=== PATIENT | female | born 1970 | race Caucasian/White ===

== ENCOUNTER 2018-12-24 12:47 | Inpatient (IN) | payer OTHER ==
[2018-12-24] MEDS: SODIUM CHLORIDE 0.9% 1L BAG IV* (15:51)
[2018-12-24] MEDS: PIPER-TAZO 3.375 GM IV (PMX) 100 ML IVPB ×2 (15:51→21:06)
[2018-12-24 15:52] LABS: ADD MAN DIFF? NO
[2018-12-24 15:57] LABS: ABNORMAL IP MESSAGE 1; HEMATOCRIT 37.8 % (37.0-47.0); HEMOGLOBIN 12.5 g/dl (12.0-16.0); MEAN CORPUSCULAR HEMOGLOBIN 29.1 pg (29.0-33.0); MEAN CORPUSCULAR HGB CONC 33.1 g/dl (32.0-37.0); MEAN CORPUSCULAR VOLUME 88.1 fl (82.0-101.0); MEAN PLATELET VOLUME 8.5 fl (7.4-10.4); PLATELET COUNT 715 10^3/UL (140-415); RED BLOOD COUNT 4.29 10^6/ul (4.20-5.40); RED CELL DISTRIBUTION WIDTH 14.3 % (11.5-14.5)
[2018-12-24 15:57] LABS: WHITE BLOOD COUNT 26.6 10^3/ul (4.8-10.8)
[2018-12-24 15:58] LABS: POSITIVE DIFF @See below
[2018-12-24] MEDS: CLINDAMYCIN 900 MG/D5W (PMX) 50 ML IVPB (16:14)
[2018-12-24 16:16] LABS: INR 0.97
[2018-12-24 16:19] LABS: ALANINE AMINOTRANSFERASE 44 IU/L (13-69); ALBUMIN 3.5 g/dl (3.3-4.9); ALBUMIN/GLOBULIN RATIO 0.72; ALKALINE PHOSPHATASE 139 IU/L (42-121); ANION GAP 8 (5-13); ASPARTATE AMINO TRANSFERASE 44 IU/L (15-46); BILIRUBIN,INDIRECT 0.1 mg/dl (0-1.1); BILIRUBIN,TOTAL 0.1 mg/dl (0.2-1.3); BLOOD UREA NITROGEN 10 mg/dl (7-20); CALCIUM 8.5 mg/dl (8.4-10.2); CARBON DIOXIDE 31 mmol/L (21-31); CHLORIDE 92 mmol/L (97-110); CREATININE 0.56 mg/dl (0.44-1.00); Estimated GFR > 60 mL/min (>60); GLUCOSE 91 mg/dl (70-220); PARTIAL THROMBOPLASTIN TIME 29.2 Sec (23.0-35.0); POTASSIUM 3.1 mmol/L (3.5-5.1); SODIUM 131 mmol/L (135-144); TOTAL PROTEIN 8.3 g/dl (6.1-8.1)
[2018-12-24 16:22] LABS: ADD UMIC YES; UR ASCORBIC ACID NEGATIVE (NEGATIVE); UR BILIRUBIN (Dip) NEGATIVE (NEGATIVE); UR BLOOD (Dip) NEGATIVE (NEGATIVE); UR CLARITY SLIGHTLY CLOUDY (CLEAR); UR COLOR AMBER (YELLOW); UR GLUCOSE (Dip) NEGATIVE (NEGATIVE); UR KETONES (Dip) NEGATIVE (NEGATIVE); UR LEUKOCYTE ESTERASE (Dip) TRACE Leu/ul (NEGATIVE); UR MUCUS FEW /HPF (NONE SEEN); UR NITRITE (Dip) NEGATIVE (NEGATIVE); UR RBC 2 /HPF (0-5); UR SPECIFIC GRAVITY (Dip) 1.021 (1.003-1.030); UR SQUAMOUS EPITHELIAL CELL FEW /HPF (FEW); UR TOTAL PROTEIN (Dip) NEGATIVE (NEGATIVE); UR UROBILINOGEN (Dip) 2+ mg/dL (NEGATIVE); UR WBC 8 /HPF (0-5)
[2018-12-24 16:31] LABS: TROPONIN-I < 0.012 ng/ml (0.000-0.120)
[2018-12-24 16:46] LABS: BAND NEUTROPHILS #M 2.6 10^3/ul (0.0-0.6); BAND NEUTROPHILS % (M) 10 % (0-4); BASOPHIL #M 0.2 10^3/ul (0.0-0.0); BASOPHILS % (M) 1 % (0-2); LYMPHOCYTES #M 4.7 10^3/ul (0.8-2.9); LYMPHOCYTES % (M) 18 % (15-51); MONOCYTE #M 2.1 10^3/ul (0.3-0.9); MONOCYTES % (M) 8 % (0-11); PLATELET MORPHOLOGY COMMENT @See below; POLYCHROMASIA 1+ (0-0); SEG NEUT #M 17.4 10^3/ul (1.6-7.5); SEGMENTED NEUTROPHILS (M) % 63 % (39-77); SMUDGE%M 30 % (0-0)
[2018-12-24 16:51] LABS: PATH REVIEW? YES
[2018-12-24] MEDS: VANCOMYCIN 1 GM (PMX) 250 ML IVPB (17:07)
[2018-12-24] MEDS ORDERED: LORAZEPAM 0.5 MG TAB PO (17:30)
[2018-12-24] MEDS ORDERED: ACETAMINOPHEN 325 MG TAB PO (17:30)
[2018-12-24] MEDS ORDERED: NACL 0.9% 3 ML SYG IV (17:30)
[2018-12-24] MEDS ORDERED: ONDANSETRON 4 MG INJ IV ×2 (17:30)
[2018-12-24 17:40] LABS: HAAIG REFLEX REFLEX FILED
[2018-12-24 17:45] LABS: BARBITURATES Negative (NEGATIVE); BENZODIAZEPINES Negative (NEGATIVE); CANNABINOIDS Positive (NEGATIVE); COCAINE Negative (NEGATIVE)
[2018-12-24 17:47] LABS: AMPHETAMINE/METHAMPHETAMINE POSITIVE (NEGATIVE); OPIATES Positive (NEGATIVE)
[2018-12-24] MEDS: OXYCODONE/ACETAMINOPHEN (5/325) TAB PO (17:49)
[2018-12-24] MEDS: POTASSIUM CHLORIDE (SR) 20 MEQ TAB PO ×2 (17:49→21:01)
[2018-12-24 18:22] LABS: HEPATITIS B SURFACE ANTIGEN NEGATIVE (NEGATIVE)
[2018-12-24 18:39] LABS: HEPATITIS B CORE ANTIBODY REACTIVE (NEGATIVE)
[2018-12-24 18:43] LABS: HEPATITIS C VIRAL ANTIBODY REACTIVE (NEGATIVE)
[2018-12-24] MEDS: VANCOMYCIN IV PER PHARMACY XX (19:29)
[2018-12-24 23:13] LABS: LACTIC ACID 2.5 mmol/L (0.5-2.0)
[2018-12-24] MEDS: SOD CHLORIDE 0.9% 1,000 ML IV (23:28)
[2018-12-25] MEDS: OXYCODONE/ACETAMINOPHEN (5/325) TAB PO ×2 (00:03→06:29)
[2018-12-25] MEDS: PIPER-TAZO 3.375 GM IV (PMX) 100 ML IVPB ×4 (04:15→17:38)
[2018-12-25] MEDS: VANCOMYCIN 1 GM 250 ML IVPB ×2 (05:41→18:15)
[2018-12-25] MEDS: SOD CHLORIDE 0.9% 1,000 ML IV ×2 (07:27→22:33)
[2018-12-25 07:29] LABS: WHITE BLOOD COUNT 23.5 10^3/ul (4.8-10.8)
[2018-12-25 07:29] LABS: HEMATOCRIT 35.8 % (37.0-47.0); HEMOGLOBIN 11.8 g/dl (12.0-16.0); MEAN CORPUSCULAR HEMOGLOBIN 28.9 pg (29.0-33.0); MEAN CORPUSCULAR VOLUME 87.5 fl (82.0-101.0); MEAN PLATELET VOLUME 9.1 fl (7.4-10.4); PLATELET COUNT 583 10^3/UL (140-415); RED BLOOD COUNT 4.09 10^6/ul (4.20-5.40); RED CELL DISTRIBUTION WIDTH 14.6 % (11.5-14.5)
[2018-12-25 07:42] LABS: HEMOGLOBIN A1C 5.6 % (0-5.9)
[2018-12-25 07:44] LABS: ADD MAN DIFF? YES; POSITIVE DIFF @See below
[2018-12-25 08:11] LABS: LACTIC ACID 2.7 mmol/L (0.5-2.0)
[2018-12-25 08:16] LABS: ALANINE AMINOTRANSFERASE 41 IU/L (13-69); ALBUMIN 2.5 g/dl (3.3-4.9); ALBUMIN/GLOBULIN RATIO 0.64; ALKALINE PHOSPHATASE 140 IU/L (42-121); ANION GAP 9 (5-13); ASPARTATE AMINO TRANSFERASE 41 IU/L (15-46); BLOOD UREA NITROGEN 8 mg/dl (7-20); CALCIUM 7.6 mg/dl (8.4-10.2); CARBON DIOXIDE 24 mmol/L (21-31); CHLORIDE 101 mmol/L (97-110); CREATININE 0.63 mg/dl (0.44-1.00); Estimated GFR > 60 mL/min (>60); GLUCOSE 116 mg/dl (70-220); MAGNESIUM 1.7 mg/dl (1.7-2.5); POTASSIUM 3.9 mmol/L (3.5-5.1); SODIUM 134 mmol/L (135-144); TOTAL PROTEIN 6.4 g/dl (6.1-8.1)
[2018-12-25 08:46] LABS: ANISOCYTOSIS 1+ (0-0); BAND NEUTROPHILS #M 1.6 10^3/ul (0.0-0.6); BAND NEUTROPHILS % (M) 7 % (0-4); LYMPHOCYTES #M 2.8 10^3/ul (0.8-2.9); LYMPHOCYTES % (M) 12 % (15-51); METAMYELOCYTES #M 0.2 10^3/ul (0.0-0.0); METAMYELOCYTES %M 1 % (0-0); MONOCYTE #M 0.7 10^3/ul (0.3-0.9); MONOCYTES % (M) 3 % (0-11); PLATELET ESTIMATE INCREASED; POIKILOCYTOSIS 1+ (0-0); POLYCHROMASIA 1+ (0-0); SEG NEUT #M 18.5 10^3/ul (1.6-7.5); SEGMENTED NEUTROPHILS (M) % 77 % (39-77); SMUDGE%M 8 % (0-0)
[2018-12-25] MEDS: METHADONE (1 MG/ML 5 ML PO UD SYG) PO (12:47)
[2018-12-25] MEDS: HYDROmorphONE 0.5 MG/0.5 ML SYG IV ×3 (13:46→22:33)
[2018-12-25 18:34] LABS: HIV 1&2 ANTIBODY NEGATIVE (NEGATIVE)
[2018-12-25] MEDS: ACETAMINOPHEN 325 MG TAB PO (20:57)
[2018-12-26] MEDS: PIPER-TAZO 3.375 GM IV (PMX) 100 ML IVPB ×4 (00:01→18:25)
[2018-12-26] MEDS: HYDROmorphONE 0.5 MG/0.5 ML SYG IV ×5 (04:24→22:40)
[2018-12-26 05:21] LABS: ADD MAN DIFF? NO
[2018-12-26 05:27] LABS: BASOPHIL # 0.1 10^3/ul (0.0-0.1); BASOPHILS % 0.5 % (0.0-2.0); EOSINOPHILS % 0.1 % (0.0-7.0); HEMATOCRIT 30.4 % (37.0-47.0); HEMOGLOBIN 10.1 g/dl (12.0-16.0); LYMPHOCYTES # 2.3 10^3/ul (0.8-2.9); LYMPHOCYTES % 10.1 % (15.0-51.0); MEAN CORPUSCULAR HEMOGLOBIN 29.2 pg (29.0-33.0); MEAN CORPUSCULAR HGB CONC 33.2 g/dl (32.0-37.0); MEAN CORPUSCULAR VOLUME 87.9 fl (82.0-101.0); MEAN PLATELET VOLUME 8.9 fl (7.4-10.4); MONOCYTE # 1.2 10^3/ul (0.3-0.9); MONOCYTES % 5.4 % (0.0-11.0); NEUTROPHIL # 18.2 10^3/ul (1.6-7.5); NEUTROPHILS % 80.1 % (39.0-77.0); PLATELET COUNT 498 10^3/UL (140-415); RED BLOOD COUNT 3.46 10^6/ul (4.20-5.40); RED CELL DISTRIBUTION WIDTH 14.6 % (11.5-14.5)
[2018-12-26 05:27] LABS: WHITE BLOOD COUNT 22.7 10^3/ul (4.8-10.8)
[2018-12-26 05:49] LABS: ANION GAP 5 (5-13); BLOOD UREA NITROGEN 7 mg/dl (7-20); CALCIUM 7.3 mg/dl (8.4-10.2); CARBON DIOXIDE 24 mmol/L (21-31); CHLORIDE 101 mmol/L (97-110); CREATININE 0.41 mg/dl (0.44-1.00); Estimated GFR > 60 mL/min (>60); GLUCOSE 107 mg/dl (70-220); MAGNESIUM 1.6 mg/dl (1.7-2.5); POTASSIUM 4.1 mmol/L (3.5-5.1); SODIUM 130 mmol/L (135-144)
[2018-12-26 06:03] LABS: VANCOMYCIN,TROUGH < 5.0 ug/ml (10.0-20.0)
[2018-12-26] MEDS: VANCOMYCIN 1 GM 250 ML IVPB ×3 (06:22→22:09)
[2018-12-26] MEDS ORDERED: VANCOMYCIN 1 GM 250 ML IVPB (06:30)
[2018-12-26] MEDS: METHADONE (1 MG/ML 5 ML PO UD SYG) PO (08:37)
[2018-12-26] MEDS: MAGNESIUM SULFATE 3 GM in DEXTROSE 5% 100 ML IVPB (11:31)
[2018-12-26] MEDS: SOD CHLORIDE 0.9% 1,000 ML IV (12:03)
[2018-12-27] MEDS: PIPER-TAZO 3.375 GM IV (PMX) 100 ML IVPB ×5 (00:22→23:46)
[2018-12-27] MEDS: ACETAMINOPHEN 325 MG TAB PO ×2 (01:52→19:36)
[2018-12-27] MEDS: SOD CHLORIDE 0.9% 1,000 ML IV ×3 (02:03→16:00)
[2018-12-27] MEDS: HYDROmorphONE 0.5 MG/0.5 ML SYG IV ×4 (02:47→22:14)
[2018-12-27 06:28] LABS: WHITE BLOOD COUNT 21.8 10^3/ul (4.8-10.8)
[2018-12-27 06:28] LABS: HEMATOCRIT 30.7 % (37.0-47.0); HEMOGLOBIN 10.2 g/dl (12.0-16.0); MEAN CORPUSCULAR HEMOGLOBIN 28.9 pg (29.0-33.0); MEAN CORPUSCULAR HGB CONC 33.2 g/dl (32.0-37.0); MEAN PLATELET VOLUME 9.4 fl (7.4-10.4); PLATELET COUNT 443 10^3/UL (140-415); RED BLOOD COUNT 3.53 10^6/ul (4.20-5.40); RED CELL DISTRIBUTION WIDTH 14.5 % (11.5-14.5)
[2018-12-27 06:40] LABS: POSITIVE DIFF @See below
[2018-12-27 06:41] LABS: ADD MAN DIFF? YES
[2018-12-27 06:50] LABS: ANION GAP 7 (5-13); BLOOD UREA NITROGEN 9 mg/dl (7-20); CALCIUM 7.6 mg/dl (8.4-10.2); CARBON DIOXIDE 25 mmol/L (21-31); CHLORIDE 100 mmol/L (97-110); Estimated GFR > 60 mL/min (>60); GLUCOSE 78 mg/dl (70-220); POTASSIUM 3.9 mmol/L (3.5-5.1); SODIUM 132 mmol/L (135-144)
[2018-12-27 06:53] LABS: VANCOMYCIN,TROUGH 7.3 ug/ml (10.0-20.0)
[2018-12-27] MEDS ORDERED: CEFAZOLIN 1 GM INJ (07:00)
[2018-12-27] MEDS ORDERED: LIDOCAINE 2% (SDV) 5 ML INJ (07:00)
[2018-12-27] MEDS ORDERED: SEVOFLURANE 15 MIN (07:00)
[2018-12-27] MEDS ORDERED: NORepinephrine 4 MG INJ (07:00)
[2018-12-27] MEDS ORDERED: CA CHLORIDE 10% 10 ML SYRINGE (07:00)
[2018-12-27] MEDS ORDERED: NA BICARBONATE 8.4% 50 ML SYG (07:00)
[2018-12-27] MEDS: VANCOMYCIN 1 GM 250 ML IVPB (07:03)
[2018-12-27] MEDS: METHADONE (1 MG/ML 5 ML PO UD SYG) PO (09:00)
[2018-12-27] MEDS ORDERED: FENTAnyl 50 MCG/ML VIAL (09:28)
[2018-12-27] MEDS ORDERED: MIDAZOLAM 1 MG/ML 2 ML INJ (09:29)
[2018-12-27] MEDS ORDERED: PROPOFOL 20 ML (09:29)
[2018-12-27] MEDS ORDERED: FENTAnyl 50 MCG/ML VIAL IV ×2 (09:30)
[2018-12-27] MEDS ORDERED: HYDROmorphONE 1 MG/5 ML IV SYRINGE IV ×2 (09:30)
[2018-12-27] MEDS ORDERED: DIPHENHYDRAMINE 50 MG INJ IV (09:30)
[2018-12-27] MEDS ORDERED: ONDANSETRON 4 MG INJ IV (09:30)
[2018-12-27] MEDS ORDERED: LEVALBUTEROL (NEB) 1.25 MG/0.5 ML AMP HHN (09:30)
[2018-12-27] MEDS ORDERED: MEPERIDINE 25 MG INJ IV (09:30)
[2018-12-27] MEDS ORDERED: METOCLOPRAMIDE 10 MG INJ (09:31)
[2018-12-27 10:09] LABS: ANISOCYTOSIS 1+ (0-0); BAND NEUTROPHILS #M 3.7 10^3/ul (0.0-0.6); BAND NEUTROPHILS % (M) 17 % (0-4); BURR CELLS 1+ (0-0); LYMPHOCYTES #M 2.8 10^3/ul (0.8-2.9); LYMPHOCYTES % (M) 13 % (15-51); METAMYELOCYTES #M 0.2 10^3/ul (0.0-0.0); METAMYELOCYTES %M 1 % (0-0); MONOCYTE #M 0.8 10^3/ul (0.3-0.9); MONOCYTES % (M) 4 % (0-11); PLATELET ESTIMATE NORMAL; POIKILOCYTOSIS 1+ (0-0); POLYCHROMASIA 3+ (0-0); REACTIVE LYMPHOCYTES #M 0.2 10^3/ul (0.0-0.0); REACTIVE LYMPHOCYTES% (M) 1 % (0-0); SEG NEUT #M 14.8 10^3/ul (1.6-7.5); SEGMENTED NEUTROPHILS (M) % 64 % (39-77); SMUDGE%M 4 % (0-0)
[2018-12-27] MEDS: BACITRACIN 50000 UNITS INJ (10:35)
[2018-12-27] MEDS: POLYMYXIN B 500000 UNIT INJ (10:35)
[2018-12-27] MEDS: POLYMYXIN/BACITRACIN 1L IRRIG IRR (11:21)
[2018-12-27] MEDS: VANCOMYCIN 1 GM INJ (11:21)
[2018-12-27] MEDS ORDERED: PHENYLephrine 10 MG INJ ×2 (12:25→12:33)
[2018-12-27 12:35] LABS: ADD MAN DIFF? NO
[2018-12-27 12:45] LABS: ABNORMAL IP MESSAGE 1; BASOPHILS % 0.1 % (0.0-2.0); EOSINOPHILS # 0.1 10^3/ul (0.0-0.5); EOSINOPHILS % 0.2 % (0.0-7.0); HEMATOCRIT 20.1 % (37.0-47.0); LYMPHOCYTES # 5.4 10^3/ul (0.8-2.9); LYMPHOCYTES % 17.6 % (15.0-51.0); MEAN CORPUSCULAR HEMOGLOBIN 28.7 pg (29.0-33.0); MEAN CORPUSCULAR HGB CONC 31.8 g/dl (32.0-37.0); MEAN CORPUSCULAR VOLUME 90.1 fl (82.0-101.0); MEAN PLATELET VOLUME 9.3 fl (7.4-10.4); MONOCYTE # 1.9 10^3/ul (0.3-0.9); MONOCYTES % 6.2 % (0.0-11.0); NEUTROPHIL # 21.3 10^3/ul (1.6-7.5); NEUTROPHILS % 69.5 % (39.0-77.0); PLATELET COUNT 429 10^3/UL (140-415); RED BLOOD COUNT 2.23 10^6/ul (4.20-5.40); RED CELL DISTRIBUTION WIDTH 14.6 % (11.5-14.5)
[2018-12-27 12:45] LABS: WHITE BLOOD COUNT 30.7 10^3/ul (4.8-10.8)
[2018-12-27] MEDS: HYDROmorphONE 1 MG/5 ML IV SYRINGE IV (12:47)
[2018-12-27 12:49] LABS: POSITIVE DIFF @See below
[2018-12-27 12:52] LABS: HEMOGLOBIN 6.4 g/dl (12.0-16.0); PATH REVIEW? YES
[2018-12-27 12:56] LABS: ALANINE AMINOTRANSFERASE 35 IU/L (13-69); ALBUMIN 1.7 g/dl (3.3-4.9); ALBUMIN/GLOBULIN RATIO 0.58; ALKALINE PHOSPHATASE 79 IU/L (42-121); ANION GAP 7 (5-13); ASPARTATE AMINO TRANSFERASE 45 IU/L (15-46); BILIRUBIN,INDIRECT 0.2 mg/dl (0-1.1); BILIRUBIN,TOTAL 0.2 mg/dl (0.2-1.3); BLOOD UREA NITROGEN 10 mg/dl (7-20); CARBON DIOXIDE 27 mmol/L (21-31); CHLORIDE 100 mmol/L (97-110); CREATININE 0.67 mg/dl (0.44-1.00); Estimated GFR > 60 mL/min (>60); GLUCOSE 99 mg/dl (70-220); POTASSIUM 3.7 mmol/L (3.5-5.1); SODIUM 134 mmol/L (135-144); TOTAL PROTEIN 4.6 g/dl (6.1-8.1)
[2018-12-27] MEDS ORDERED: ALBUMIN HUMAN 5% 500 ML (13:04)
[2018-12-27] MEDS: ALBUMIN HUMAN 5% 250 ML IV ×2 (13:21→13:23)
[2018-12-27] MEDS: ALBUMIN HUMAN 25% 100 ML IV ×2 (13:54→15:37)
[2018-12-27 13:56] LABS: ANISOCYTOSIS 1+ (0-0); BAND NEUTROPHILS #M 5.2 10^3/ul (0.0-0.6); BAND NEUTROPHILS % (M) 17 % (0-4); BURR CELLS 1+ (0-0); GIANT THROMBO% (M) 1 % (0-0); HYPOCHROMASIA 2+ (0-0); LYMPHOCYTES #M 2.7 10^3/ul (0.8-2.9); LYMPHOCYTES % (M) 9 % (15-51); METAMYELOCYTES #M 0.3 10^3/ul (0.0-0.0); METAMYELOCYTES %M 1 % (0-0); MICROCYTOSIS 1+ (0-0); MONOCYTE #M 0.9 10^3/ul (0.3-0.9); MONOCYTES % (M) 3 % (0-11); MYELOCYTES #M 0.3 10^3/ul (0.0-0.0); MYELOCYTES % (M) 1 % (0-0); PLATELET ESTIMATE NORMAL; POIKILOCYTOSIS 1+ (0-0); POLYCHROMASIA 2+ (0-0); REACTIVE LYMPHOCYTES #M 0.9 10^3/ul (0.0-0.0); REACTIVE LYMPHOCYTES% (M) 3 % (0-0); SEG NEUT #M 21.9 10^3/ul (1.6-7.5); SEGMENTED NEUTROPHILS (M) % 66 % (39-77); SMUDGE%M 7 % (0-0); TOXIC GRANULATION 2+ (0-0)
[2018-12-27] MEDS: PHENYLephrine 20MG IN 250 ML 250 ML IV ×3 (14:30→22:21)
[2018-12-27] MEDS: SOD CHLORIDE 0.9% 100 ML (15:43)
[2018-12-27] MEDS: IOHEXOL 300MG/ML 150 ML BTL (15:43)
[2018-12-27] MEDS: VANCOMYCIN HCL 1.25 GM in SOD CHLORIDE 0.9% 250 ML IVPB (18:44)
[2018-12-27] MEDS: DIPHENHYDRAMINE 50 MG INJ IV (19:39)
[2018-12-27] MEDS: morphine 4 MG/ML VIAL IV (20:33)
[2018-12-27 22:50] LABS: PRETRANSFUSION BILIRUBIN 0.2 mg/dl
[2018-12-28] MEDS: VANCOMYCIN HCL 1.25 GM in SOD CHLORIDE 0.9% 250 ML IVPB ×3 (02:41→17:28)
[2018-12-28] MEDS: SOD CHLORIDE 0.9% 1,000 ML IV ×3 (02:42→22:48)
[2018-12-28] MEDS: PHENYLephrine 20MG IN 250 ML 250 ML IV ×4 (02:43→18:26)
[2018-12-28] MEDS: HYDROmorphONE 0.5 MG/0.5 ML SYG IV ×5 (02:48→22:46)
[2018-12-28] MEDS: morphine 4 MG/ML VIAL IV ×4 (04:08→18:39)
[2018-12-28 05:29] LABS: ABNORMAL IP MESSAGE 1; HEMATOCRIT 15.5 % (37.0-47.0); MEAN CORPUSCULAR HEMOGLOBIN 29.1 pg (29.0-33.0); MEAN CORPUSCULAR HGB CONC 32.3 g/dl (32.0-37.0); MEAN CORPUSCULAR VOLUME 90.1 fl (82.0-101.0); MEAN PLATELET VOLUME 9.5 fl (7.4-10.4); PLATELET COUNT 343 10^3/UL (140-415); RED BLOOD COUNT 1.72 10^6/ul (4.20-5.40); RED CELL DISTRIBUTION WIDTH 14.6 % (11.5-14.5)
[2018-12-28 05:29] LABS: WHITE BLOOD COUNT 14.2 10^3/ul (4.8-10.8)
[2018-12-28 05:40] LABS: POSITIVE DIFF @See below
[2018-12-28 05:42] LABS: ADD MAN DIFF? YES
[2018-12-28] MEDS: PIPER-TAZO 3.375 GM IV (PMX) 100 ML IVPB ×2 (06:15→12:29)
[2018-12-28] MEDS: DIPHENHYDRAMINE 25 MG CAP PO ×2 (07:49→14:27)
[2018-12-28] MEDS: ACETAMINOPHEN 325 MG TAB PO ×2 (07:50→14:27)
[2018-12-28 07:52] LABS: ANISOCYTOSIS 1+ (0-0); BAND NEUTROPHILS #M 1.1 10^3/ul (0.0-0.6); BAND NEUTROPHILS % (M) 8 % (0-4); BURR CELLS 1+ (0-0); LYMPHOCYTES #M 2.8 10^3/ul (0.8-2.9); LYMPHOCYTES % (M) 20 % (15-51); MONOCYTE #M 0.4 10^3/ul (0.3-0.9); MONOCYTES % (M) 3 % (0-11); PLATELET ESTIMATE NORMAL; POIKILOCYTOSIS 1+ (0-0); POLYCHROMASIA 2+ (0-0); SEGMENTED NEUTROPHILS (M) % 69 % (39-77); SMUDGE%M 5 % (0-0)
[2018-12-28] MEDS: ENOXAPARIN 40 MG/0.4 ML SYG SC (09:19)
[2018-12-28] MEDS: METHADONE (1 MG/ML 5 ML PO UD SYG) PO (10:24)
[2018-12-28 14:55] LABS: IMMEDIATE SPIN CROSSMATCH 1 3
[2018-12-28] MEDS: RIFAMPIN 300 MG CAP PO (17:28)
[2018-12-28 22:50] LABS: HEMATOCRIT 23.3 % (37.0-47.0); HEMOGLOBIN 7.8 g/dl (12.0-16.0)
[2018-12-28 22:55] LABS: ADD UMIC NO; UR ASCORBIC ACID NEGATIVE (NEGATIVE); UR BILIRUBIN (Dip) NEGATIVE (NEGATIVE); UR BLOOD (Dip) NEGATIVE (NEGATIVE); UR CLARITY CLEAR (CLEAR); UR COLOR AMBER (YELLOW); UR GLUCOSE (Dip) NEGATIVE (NEGATIVE); UR KETONES (Dip) NEGATIVE (NEGATIVE); UR LEUKOCYTE ESTERASE (Dip) NEGATIVE Leu/ul (NEGATIVE); UR NITRITE (Dip) NEGATIVE (NEGATIVE); UR SPECIFIC GRAVITY (Dip) 1.013 (1.003-1.030); UR TOTAL PROTEIN (Dip) NEGATIVE (NEGATIVE); UR UROBILINOGEN (Dip) 2+ mg/dL (NEGATIVE)
[2018-12-29 01:38] LABS: VANCOMYCIN,TROUGH 15.6 ug/ml (10.0-20.0)
[2018-12-29] MEDS: morphine 4 MG/ML VIAL IV ×2 (01:55→06:51)
[2018-12-29] MEDS: VANCOMYCIN HCL 1.25 GM in SOD CHLORIDE 0.9% 250 ML IVPB ×3 (01:55→17:34)
[2018-12-29 05:20] LABS: ADD MAN DIFF? NO
[2018-12-29 05:31] LABS: BASOPHIL # 0.1 10^3/ul (0.0-0.1); BASOPHILS % 0.6 % (0.0-2.0); EOSINOPHILS # 0.1 10^3/ul (0.0-0.5); EOSINOPHILS % 1.4 % (0.0-7.0); HEMOGLOBIN 8.1 g/dl (12.0-16.0); LYMPHOCYTES # 2.4 10^3/ul (0.8-2.9); LYMPHOCYTES % 27.5 % (15.0-51.0); MEAN CORPUSCULAR HEMOGLOBIN 30.3 pg (29.0-33.0); MEAN CORPUSCULAR HGB CONC 33.8 g/dl (32.0-37.0); MEAN CORPUSCULAR VOLUME 89.9 fl (82.0-101.0); MEAN PLATELET VOLUME 9.6 fl (7.4-10.4); MONOCYTE # 0.5 10^3/ul (0.3-0.9); MONOCYTES % 5.3 % (0.0-11.0); NEUTROPHIL # 5.5 10^3/ul (1.6-7.5); NEUTROPHILS % 63.2 % (39.0-77.0); PLATELET COUNT 355 10^3/UL (140-415); RED BLOOD COUNT 2.67 10^6/ul (4.20-5.40); RED CELL DISTRIBUTION WIDTH 14.5 % (11.5-14.5)
[2018-12-29 05:31] LABS: WHITE BLOOD COUNT 8.7 10^3/ul (4.8-10.8)
[2018-12-29 05:59] LABS: ANION GAP 5 (5-13); BLOOD UREA NITROGEN 7 mg/dl (7-20); CALCIUM 7.7 mg/dl (8.4-10.2); CARBON DIOXIDE 26 mmol/L (21-31); CHLORIDE 106 mmol/L (97-110); CREATININE 0.47 mg/dl (0.44-1.00); Estimated GFR > 60 mL/min (>60); GLUCOSE 102 mg/dl (70-220); SODIUM 137 mmol/L (135-144)
[2018-12-29] MEDS: HYDROmorphONE 0.5 MG/0.5 ML SYG IV ×4 (06:11→18:49)
[2018-12-29] MEDS: RIFAMPIN 300 MG CAP PO (08:00)
[2018-12-29] MEDS: SOD CHLORIDE 0.9% 1,000 ML IV (08:00)
[2018-12-29] MEDS: METHADONE (1 MG/ML 5 ML PO UD SYG) PO (08:01)
[2018-12-29] MEDS: ENOXAPARIN 40 MG/0.4 ML SYG SC (08:02)
[2018-12-29] MEDS: HYDROCODONE/APAP (5/325) TAB PO (20:31)
[2018-12-29] MEDS: HYDROmorphONE 1 MG/ML SYG IV (23:02)
[2018-12-30] MEDS: VANCOMYCIN HCL 1.25 GM in SOD CHLORIDE 0.9% 250 ML IVPB ×3 (02:05→18:06)
[2018-12-30] MEDS: HYDROmorphONE 1 MG/ML SYG IV ×5 (03:16→19:45)
[2018-12-30] MEDS: HYDROCODONE/APAP (5/325) TAB PO ×2 (04:14→18:06)
[2018-12-30] MEDS: ENOXAPARIN 40 MG/0.4 ML SYG SC (08:56)
[2018-12-30] MEDS: RIFAMPIN 300 MG CAP PO (08:57)
[2018-12-30] MEDS: METHADONE (1 MG/ML 5 ML PO UD SYG) PO (08:58)
[2018-12-30] MEDS: MICONAZOLE 200 MG VAG SUPP VAG (22:30)
[2018-12-31] MEDS: HYDROmorphONE 1 MG/ML SYG IV ×6 (00:08→21:34)
[2018-12-31] MEDS: VANCOMYCIN HCL 1.25 GM in SOD CHLORIDE 0.9% 250 ML IVPB ×3 (01:44→17:23)
[2018-12-31] MEDS: ENOXAPARIN 40 MG/0.4 ML SYG SC (08:49)
[2018-12-31] MEDS: RIFAMPIN 300 MG CAP PO (08:49)
[2018-12-31] MEDS: METHADONE (1 MG/ML 5 ML PO UD SYG) PO (10:13)
[2018-12-31] MEDS: MICONAZOLE 100 MG VAG SUPP VAG (21:00)
[2019-01-01] MEDS: VANCOMYCIN HCL 1.25 GM in SOD CHLORIDE 0.9% 250 ML IVPB ×3 (01:38→15:28)
[2019-01-01] MEDS: HYDROmorphONE 1 MG/ML SYG IV ×5 (01:38→21:05)
[2019-01-01] MEDS: RIFAMPIN 300 MG CAP PO (08:12)
[2019-01-01] MEDS: METHADONE (1 MG/ML 5 ML PO UD SYG) PO (08:13)
[2019-01-01] MEDS: ENOXAPARIN 40 MG/0.4 ML SYG SC (08:14)
[2019-01-01 10:40] LABS: BLOOD UREA NITROGEN 12 mg/dl (7-20)
[2019-01-01 10:40] LABS: CREATININE 0.49 mg/dl (0.44-1.00)
[2019-01-01 10:46] LABS: VANCOMYCIN,TROUGH 18.7 ug/ml (10.0-20.0)
[2019-01-01] MEDS: KETOROLAC 15 MG INJ IV (15:34)
[2019-01-01] MEDS: MICONAZOLE 100 MG VAG SUPP VAG (21:12)
[2019-01-02] MEDS: KETOROLAC 15 MG INJ IV ×4 (00:23→20:22)
[2019-01-02] MEDS: HYDROmorphONE 1 MG/ML SYG IV ×4 (02:00→16:43)
[2019-01-02] MEDS: VANCOMYCIN HCL 1.25 GM in SOD CHLORIDE 0.9% 250 ML IVPB ×2 (02:01→15:28)
[2019-01-02] MEDS: RIFAMPIN 300 MG CAP PO (08:20)
[2019-01-02] MEDS: METHADONE (1 MG/ML 5 ML PO UD SYG) PO (08:21)
[2019-01-02] MEDS: ENOXAPARIN 40 MG/0.4 ML SYG SC (08:22)
[2019-01-02] MEDS: ACETAMINOPHEN 325 MG TAB PO (13:19)
[2019-01-02] MEDS: HYDROmorphONE 2 MG TAB PO (18:56)
[2019-01-03] MEDS: ACETAMINOPHEN 325 MG TAB PO ×3 (00:24→14:35)
[2019-01-03] MEDS: HYDROmorphONE 2 MG TAB PO ×4 (01:30→19:57)
[2019-01-03] MEDS: VANCOMYCIN HCL 1.25 GM in SOD CHLORIDE 0.9% 250 ML IVPB ×2 (01:51→14:19)
[2019-01-03] MEDS: KETOROLAC 15 MG INJ IV ×4 (02:27→21:23)
[2019-01-03] MEDS: RIFAMPIN 300 MG CAP PO (10:22)
[2019-01-03] MEDS: METHADONE (1 MG/ML 5 ML PO UD SYG) PO (10:22)
[2019-01-03] MEDS: ENOXAPARIN 40 MG/0.4 ML SYG SC (10:23)
[2019-01-04] MEDS: ACETAMINOPHEN 325 MG TAB PO ×3 (00:09→19:43)
[2019-01-04] MEDS: traZODone 50 MG TAB PO ×2 (00:10→23:35)
[2019-01-04] MEDS: VANCOMYCIN HCL 1.25 GM in SOD CHLORIDE 0.9% 250 ML IVPB ×2 (01:48→14:26)
[2019-01-04] MEDS: KETOROLAC 15 MG INJ IV ×2 (04:43→10:35)
[2019-01-04] MEDS: HYDROmorphONE 2 MG TAB PO ×3 (06:58→18:52)
[2019-01-04 07:11] LABS: CREATININE 0.57 mg/dl (0.44-1.00)
[2019-01-04 07:11] LABS: BLOOD UREA NITROGEN 15 mg/dl (7-20)
[2019-01-04] MEDS: METHADONE (1 MG/ML 5 ML PO UD SYG) PO (09:40)
[2019-01-04] MEDS: RIFAMPIN 300 MG CAP PO (09:40)
[2019-01-04] MEDS: ENOXAPARIN 40 MG/0.4 ML SYG SC (09:47)
[2019-01-04 13:32] LABS: VANCOMYCIN,TROUGH 12.9 ug/ml (10.0-20.0)
[2019-01-05] MEDS: VANCOMYCIN HCL 1.25 GM in SOD CHLORIDE 0.9% 250 ML IVPB ×2 (02:30→15:36)
[2019-01-05] MEDS: HYDROmorphONE 2 MG TAB PO ×4 (02:34→21:39)
[2019-01-05] MEDS: RIFAMPIN 300 MG CAP PO (09:19)
[2019-01-05] MEDS: METHADONE (1 MG/ML 5 ML PO UD SYG) PO (09:19)
[2019-01-05] MEDS: ENOXAPARIN 40 MG/0.4 ML SYG SC (09:20)
[2019-01-05] MEDS: ACETAMINOPHEN 325 MG TAB PO (13:47)
[2019-01-05] MEDS: traZODone 50 MG TAB PO (20:53)
[2019-01-06] MEDS: VANCOMYCIN HCL 1.25 GM in SOD CHLORIDE 0.9% 250 ML IVPB ×2 (01:13→13:53)
[2019-01-06] MEDS: RIFAMPIN 300 MG CAP PO (08:20)
[2019-01-06] MEDS: METHADONE (1 MG/ML 5 ML PO UD SYG) PO (08:21)
[2019-01-06] MEDS: ENOXAPARIN 40 MG/0.4 ML SYG SC (08:24)
[2019-01-06] MEDS: HYDROmorphONE 2 MG TAB PO (10:53)
[2019-01-06] MEDS: ACETAMINOPHEN 325 MG TAB PO (12:07)
[2019-01-06] MEDS: IBUPROFEN 600 MG TAB PO (17:59)
[2019-01-06] MEDS: traZODone 50 MG TAB PO (20:42)
[2019-01-07] MEDS: VANCOMYCIN HCL 1.25 GM in SOD CHLORIDE 0.9% 250 ML IVPB ×2 (02:32→14:00)
[2019-01-07] MEDS: ACETAMINOPHEN 325 MG TAB PO (02:57)
[2019-01-07 06:43] LABS: BLOOD UREA NITROGEN 19 mg/dl (7-20)
[2019-01-07 06:43] LABS: CREATININE 0.53 mg/dl (0.44-1.00)
[2019-01-07] MEDS: HYDROmorphONE 2 MG TAB PO ×2 (06:44→13:38)
[2019-01-07] MEDS: METHADONE (1 MG/ML 5 ML PO UD SYG) PO (09:03)
[2019-01-07] MEDS: ENOXAPARIN 40 MG/0.4 ML SYG SC (09:06)
[2019-01-07] MEDS: RIFAMPIN 300 MG CAP PO (11:08)
== END 2019-01-07 16:00 | disposition home or self-care (01) | DRG 853 ==
LOC: 2NE 01-07 07:05 → ICU 12-27 14:17 → PP2 12-29 13:05 → E/R 12:47 → 2NE 17:09
PROC: 0JBD0ZZ Excision of Right Upper Arm Subcutaneous Tissue and Fascia, Open Approach (ICD-10-PCS; principal; 2018-12-27 10:05)
PROC: 0X920ZZ Drainage of Right Shoulder Region, Open Approach (ICD-10-PCS; 2018-12-27 10:05)
PROC: 0X9D0ZZ Drainage of Right Lower Arm, Open Approach (ICD-10-PCS; 2018-12-27 10:05)
PROC: 30233N1 Transfusion of Nonautologous Red Blood Cells into Peripheral Vein, Percutaneous Approach (ICD-10-PCS; 2018-12-27 10:05)
DX: A41.02 Sepsis due to Methicillin resistant Staphylococcus aureus (principal); R65.21 Severe sepsis with septic shock; L03.113 Cellulitis of right upper limb; E87.1 Hypo-osmolality and hyponatremia; L02.413 Cutaneous abscess of right upper limb; D64.9 Anemia, unspecified; F11.10 Opioid abuse, uncomplicated; F17.200 Nicotine dependence, unspecified, uncomplicated; B18.2 Chronic viral hepatitis C; F15.90 Other stimulant use, unspecified, uncomplicated
CPT/HCPCS: 36415; 36430; 71045; 73060-RT; 73200; 73222; 80048; 80053; 80202; 80307; 81001; 81003; 82565; 83036; 83605; 83735; 84484; 84520; 85014; 85018; 85025; 85610; 85730; 86078; 86703; 86704; 86709; 86803; 86850; 86900; 86901; 86920; 87040; 87070; 87075; 87081; 87086; 87102; 87116; 87340; 87522; 93005; 93306; 93931; 93971; 96365; 96368; 96375; 99291-25

== ENCOUNTER 2019-06-04 18:18 | Inpatient (IN) | payer OTHER ==
[2019-06-04 19:57] LABS: ADD MAN DIFF? NO
[2019-06-04 20:19] LABS: ALANINE AMINOTRANSFERASE 73 IU/L (13-69); ALBUMIN 3.5 g/dl (3.3-4.9); ALBUMIN/GLOBULIN RATIO 0.66; ALKALINE PHOSPHATASE 154 IU/L (42-121); ANION GAP 8 (5-13); ASPARTATE AMINO TRANSFERASE 51 IU/L (15-46); BILIRUBIN,INDIRECT 0.7 mg/dl (0-1.1); BILIRUBIN,TOTAL 0.7 mg/dl (0.2-1.3); BLOOD UREA NITROGEN 12 mg/dl (7-20); CALCIUM 8.2 mg/dl (8.4-10.2); CARBON DIOXIDE 30 mmol/L (21-31); CHLORIDE 91 mmol/L (97-110); CREATININE 0.63 mg/dl (0.44-1.00); Estimated GFR > 60 mL/min (>60); GLUCOSE 104 mg/dl (70-220); LIPASE 25 U/L (23-300); POTASSIUM 3.6 mmol/L (3.5-5.1); SODIUM 129 mmol/L (135-144); TOTAL PROTEIN 8.8 g/dl (6.1-8.1)
[2019-06-04 20:21] LABS: INR 0.99; PROTIME 13.2 Sec (11.9-14.9)
[2019-06-04 20:22] LABS: PARTIAL THROMBOPLASTIN TIME 27.5 Sec (23.0-35.0)
[2019-06-04] MEDS: SOD CHLORIDE 0.9% 1,000 ML IV ×2 (20:31→22:30)
[2019-06-04] MEDS: ONDANSETRON 4 MG INJ IV (20:32)
[2019-06-04] MEDS: CEFTRIAXONE 1 GM/50 ML (PMX) 50 ML IVPB (20:32)
[2019-06-04] MEDS: DIPHTH/TET/ACEL PERTUSS (ADULT) 0.5 ML VIAL IM* (20:32)
[2019-06-04 20:57] LABS: WHITE BLOOD COUNT 24.6 10^3/ul (4.8-10.8)
[2019-06-04 20:57] LABS: ABNORMAL IP MESSAGE 1; BASOPHIL # 0.1 10^3/ul (0.0-0.1); BASOPHILS % 0.2 % (0.0-2.0); EOSINOPHILS % 0.2 % (0.0-7.0); HEMOGLOBIN 10.4 g/dl (12.0-16.0); LYMPHOCYTES # 2.7 10^3/ul (0.8-2.9); MEAN CORPUSCULAR HEMOGLOBIN 26.3 pg (29.0-33.0); MEAN CORPUSCULAR HGB CONC 32.5 g/dl (32.0-37.0); MEAN PLATELET VOLUME 9.2 fl (7.4-10.4); MONOCYTE # 1.2 10^3/ul (0.3-0.9); NEUTROPHIL # 20.3 10^3/ul (1.6-7.5); NEUTROPHILS % 82.5 % (39.0-77.0); PLATELET COUNT 406 10^3/UL (140-415); RED BLOOD COUNT 3.95 10^6/ul (4.20-5.40); RED CELL DISTRIBUTION WIDTH 18.6 % (11.5-14.5)
[2019-06-04] MEDS: KETOROLAC 15 MG INJ IV (21:00)
[2019-06-04 21:01] LABS: POSITIVE DIFF @See below
[2019-06-04] MEDS ORDERED: DOCUSATE SODIUM 100 MG CAP PO (22:30)
[2019-06-04] MEDS ORDERED: ONDANSETRON 4 MG INJ IV (22:30)
[2019-06-04] MEDS ORDERED: NACL 0.9% 3 ML SYG IV (22:30)
[2019-06-04] MEDS ORDERED: ACETAMINOPHEN 325 MG TAB PO (22:30)
[2019-06-04] MEDS ORDERED: BISACODYL (EC) 5 MG TAB PO (22:30)
[2019-06-04] MEDS: HEPARIN 5,000 UNIT/1 ML VIAL SC (22:30)
[2019-06-04] MEDS: PIPER-TAZO 3.375 GM IV (PMX) 100 ML IVPB (22:39)
[2019-06-04 22:44] LABS: ETHANOL < 10.0 mg/dl (0-0)
[2019-06-05] MEDS: SOD CHLORIDE 0.9% 500 ML IV ×2 (00:12→06:46)
[2019-06-05] MEDS: MIDODRINE 5 MG TAB PO (00:14)
[2019-06-05] MEDS: VANCOMYCIN 1 GM (PMX) 250 ML IVPB (00:30)
[2019-06-05] MEDS: SOD CHLORIDE 0.9% 1,000 ML IV ×2 (03:54→10:01)
[2019-06-05] MEDS: HEPARIN 5,000 UNIT/1 ML VIAL SC ×3 (06:41→22:06)
[2019-06-05 06:53] LABS: ADD MAN DIFF? NO
[2019-06-05 06:58] LABS: BASOPHIL # 0.1 10^3/ul (0.0-0.1); BASOPHILS % 0.3 % (0.0-2.0); EOSINOPHILS # 0.1 10^3/ul (0.0-0.5); EOSINOPHILS % 0.6 % (0.0-7.0); HEMOGLOBIN 9.3 g/dl (12.0-16.0); LYMPHOCYTES # 1.6 10^3/ul (0.8-2.9); LYMPHOCYTES % 8.8 % (15.0-51.0); MEAN CORPUSCULAR HEMOGLOBIN 26.3 pg (29.0-33.0); MEAN CORPUSCULAR HGB CONC 32.1 g/dl (32.0-37.0); MEAN CORPUSCULAR VOLUME 82.2 fl (82.0-101.0); MEAN PLATELET VOLUME 9.7 fl (7.4-10.4); MONOCYTE # 0.9 10^3/ul (0.3-0.9); MONOCYTES % 4.9 % (0.0-11.0); NEUTROPHIL # 15.7 10^3/ul (1.6-7.5); NEUTROPHILS % 84.2 % (39.0-77.0); PLATELET COUNT 401 10^3/UL (140-415); RED BLOOD COUNT 3.53 10^6/ul (4.20-5.40); RED CELL DISTRIBUTION WIDTH 18.4 % (11.5-14.5)
[2019-06-05 06:58] LABS: WHITE BLOOD COUNT 18.6 10^3/ul (4.8-10.8)
[2019-06-05 07:26] LABS: ALANINE AMINOTRANSFERASE 56 IU/L (13-69); ALBUMIN 2.5 g/dl (3.3-4.9); ALBUMIN/GLOBULIN RATIO 0.62; ALKALINE PHOSPHATASE 155 IU/L (42-121); ANION GAP 3 (5-13); ASPARTATE AMINO TRANSFERASE 40 IU/L (15-46); BILIRUBIN,INDIRECT 0.3 mg/dl (0-1.1); BILIRUBIN,TOTAL 0.3 mg/dl (0.2-1.3); BLOOD UREA NITROGEN 14 mg/dl (7-20); CALCIUM 7.3 mg/dl (8.4-10.2); CARBON DIOXIDE 28 mmol/L (21-31); CHLORIDE 101 mmol/L (97-110); CREATININE 0.59 mg/dl (0.44-1.00); Estimated GFR > 60 mL/min (>60); GLUCOSE 122 mg/dl (70-220); MAGNESIUM 1.9 mg/dl (1.7-2.5); SODIUM 132 mmol/L (135-144); TOTAL PROTEIN 6.5 g/dl (6.1-8.1)
[2019-06-05 07:32] LABS: IRON < 10 ug/dl (35-150)
[2019-06-05 07:40] LABS: TOTAL IRON BINDING CAPACITY 302 ug/dl (241-421)
[2019-06-05 07:53] LABS: FERRITIN 67.8 ng/ml (6.2-137.0)
[2019-06-05 08:04] LABS: HEMOGLOBIN A1C 5.5 % (0-5.9)
[2019-06-05] MEDS: POTASSIUM CHLORIDE (SR) 20 MEQ TAB PO (10:01)
[2019-06-05] MEDS: HYDROCODONE/APAP (5/325) TAB PO (10:13)
[2019-06-05] MEDS: METHADONE 10 MG TAB PO (20:58)
[2019-06-06] MEDS: HEPARIN 5,000 UNIT/1 ML VIAL SC ×3 (06:31→21:31)
[2019-06-06 08:28] LABS: ADD MAN DIFF? NO
[2019-06-06 08:42] LABS: WHITE BLOOD COUNT 12.4 10^3/ul (4.8-10.8)
[2019-06-06 08:42] LABS: BASOPHILS % 0.3 % (0.0-2.0); EOSINOPHILS # 0.2 10^3/ul (0.0-0.5); EOSINOPHILS % 1.9 % (0.0-7.0); HEMATOCRIT 29.9 % (37.0-47.0); HEMOGLOBIN 9.2 g/dl (12.0-16.0); LYMPHOCYTES % 24.6 % (15.0-51.0); MEAN CORPUSCULAR HEMOGLOBIN 25.5 pg (29.0-33.0); MEAN CORPUSCULAR HGB CONC 30.8 g/dl (32.0-37.0); MEAN CORPUSCULAR VOLUME 82.8 fl (82.0-101.0); MEAN PLATELET VOLUME 10.1 fl (7.4-10.4); MONOCYTE # 0.8 10^3/ul (0.3-0.9); MONOCYTES % 6.7 % (0.0-11.0); NEUTROPHIL # 8.1 10^3/ul (1.6-7.5); NEUTROPHILS % 65.4 % (39.0-77.0); PLATELET COUNT 456 10^3/UL (140-415); RED BLOOD COUNT 3.61 10^6/ul (4.20-5.40); RED CELL DISTRIBUTION WIDTH 18.7 % (11.5-14.5)
[2019-06-06 08:53] LABS: ALANINE AMINOTRANSFERASE 51 IU/L (13-69); ALBUMIN 2.5 g/dl (3.3-4.9); ALKALINE PHOSPHATASE 189 IU/L (42-121); ANION GAP 2 (5-13); ASPARTATE AMINO TRANSFERASE 55 IU/L (15-46); BILIRUBIN,INDIRECT 0.2 mg/dl (0-1.1); BILIRUBIN,TOTAL 0.2 mg/dl (0.2-1.3); BLOOD UREA NITROGEN 9 mg/dl (7-20); CALCIUM 7.8 mg/dl (8.4-10.2); CARBON DIOXIDE 30 mmol/L (21-31); CHLORIDE 102 mmol/L (97-110); Estimated GFR > 60 mL/min (>60); GLUCOSE 94 mg/dl (70-220); POTASSIUM 3.6 mmol/L (3.5-5.1); SODIUM 134 mmol/L (135-144); TOTAL PROTEIN 6.6 g/dl (6.1-8.1)
[2019-06-06] MEDS: POTASSIUM CHLORIDE (SR) 20 MEQ TAB PO (10:10)
[2019-06-06] MEDS: METHADONE 10 MG TAB PO (10:11)
[2019-06-06] MEDS ORDERED: VANCOMYCIN IV PER PHARMACY XX (13:30)
[2019-06-06] MEDS: VANCOMYCIN 1 GM 250 ML IVPB (14:13)
[2019-06-06] MEDS: CEFEPIME 1GM/50 ML (PMX) 50 ML IVPB ×2 (14:13→21:24)
[2019-06-06] MEDS: SOD CHLORIDE 0.9% 100 ML (15:59)
[2019-06-06] MEDS: IOHEXOL 300MG/ML 150 ML BTL (15:59)
[2019-06-06] MEDS: FERROUS FUMARATE (SR) TAB PO (21:23)
[2019-06-07] MEDS: VANCOMYCIN 750 MG (PMX) 250 ML IVPB ×2 (02:35→14:34)
[2019-06-07] MEDS: HEPARIN 5,000 UNIT/1 ML VIAL SC ×3 (05:36→21:35)
[2019-06-07 06:25] LABS: WHITE BLOOD COUNT 11.3 10^3/ul (4.8-10.8)
[2019-06-07 06:25] LABS: HEMATOCRIT 29.1 % (37.0-47.0); HEMOGLOBIN 9.3 g/dl (12.0-16.0); MEAN CORPUSCULAR HEMOGLOBIN 25.9 pg (29.0-33.0); MEAN CORPUSCULAR VOLUME 81.1 fl (82.0-101.0); MEAN PLATELET VOLUME 9.2 fl (7.4-10.4); PLATELET COUNT 505 10^3/UL (140-415); RED BLOOD COUNT 3.59 10^6/ul (4.20-5.40); RED CELL DISTRIBUTION WIDTH 18.6 % (11.5-14.5)
[2019-06-07 06:43] LABS: POSITIVE DIFF @See below
[2019-06-07 06:44] LABS: ADD MAN DIFF? YES
[2019-06-07 06:49] LABS: MAGNESIUM 1.5 mg/dl (1.7-2.5)
[2019-06-07 06:49] LABS: PHOSPHORUS 4.3 mg/dl (2.5-4.9)
[2019-06-07 06:52] LABS: C-REACTIVE PROTEIN 5.1 mg/dl (0.0-0.9)
[2019-06-07 06:53] LABS: ALANINE AMINOTRANSFERASE 59 IU/L (13-69); ALKALINE PHOSPHATASE 199 IU/L (42-121); ANION GAP 2 (5-13); ASPARTATE AMINO TRANSFERASE 67 IU/L (15-46); BILIRUBIN,INDIRECT 0.2 mg/dl (0-1.1); BILIRUBIN,TOTAL 0.2 mg/dl (0.2-1.3); BLOOD UREA NITROGEN 6 mg/dl (7-20); CARBON DIOXIDE 30 mmol/L (21-31); CHLORIDE 102 mmol/L (97-110); CREATININE 0.47 mg/dl (0.44-1.00); Estimated GFR > 60 mL/min (>60); GLUCOSE 95 mg/dl (70-220); POTASSIUM 3.9 mmol/L (3.5-5.1); SODIUM 134 mmol/L (135-144)
[2019-06-07 06:54] LABS: ALBUMIN 2.5 g/dl (3.3-4.9); ALBUMIN/GLOBULIN RATIO 0.58; TOTAL PROTEIN 6.8 g/dl (6.1-8.1)
[2019-06-07 07:31] LABS: ADD UMIC YES; UR ASCORBIC ACID NEGATIVE (NEGATIVE); UR BILIRUBIN (Dip) NEGATIVE (NEGATIVE); UR BLOOD (Dip) 2+ mg/dL (NEGATIVE); UR CLARITY CLEAR (CLEAR); UR COLOR STRAW (YELLOW); UR GLUCOSE (Dip) NEGATIVE (NEGATIVE); UR KETONES (Dip) NEGATIVE (NEGATIVE); UR LEUKOCYTE ESTERASE (Dip) NEGATIVE Leu/ul (NEGATIVE); UR NITRITE (Dip) NEGATIVE (NEGATIVE); UR RBC 17 /HPF (0-5); UR SPECIFIC GRAVITY (Dip) 1.005 (1.003-1.030); UR TOTAL PROTEIN (Dip) NEGATIVE (NEGATIVE); UR UROBILINOGEN (Dip) NEGATIVE (NEGATIVE); UR WBC 1 /HPF (0-5)
[2019-06-07 07:51] LABS: AMPHETAMINE/METHAMPHETAMINE Positive (NEGATIVE); BARBITURATES Negative (NEGATIVE); BENZODIAZEPINES Negative (NEGATIVE); CANNABINOIDS Negative (NEGATIVE); COCAINE Negative (NEGATIVE); OPIATES Positive (NEGATIVE)
[2019-06-07 08:02] LABS: ANISOCYTOSIS 1+ (0-0); BAND NEUTROPHILS #M 1.1 10^3/ul (0.0-0.6); BAND NEUTROPHILS % (M) 10 % (0-4); BASOPHIL #M 0.1 10^3/ul (0.0-0.0); BASOPHILS % (M) 1 % (0-2); EOSINOPHILS % (M) 3 % (0-7); LYMPHOCYTES #M 2.1 10^3/ul (0.8-2.9); LYMPHOCYTES % (M) 19 % (15-51); MONOCYTE #M 0.9 10^3/ul (0.3-0.9); MONOCYTES % (M) 8 % (0-11); PLATELET ESTIMATE INCREASED; POLYCHROMASIA 1+ (0-0); SEG NEUT #M 6.8 10^3/ul (1.6-7.5); SEGMENTED NEUTROPHILS (M) % 59 % (39-77); SMUDGE%M 5 % (0-0)
[2019-06-07 08:37] LABS: ERYTHROCYTE SEDIMENTATION RATE 82 mm/Hr (0-20)
[2019-06-07] MEDS: FERROUS FUMARATE (SR) TAB PO ×2 (10:02→21:28)
[2019-06-07] MEDS: POTASSIUM CHLORIDE (SR) 20 MEQ TAB PO (10:03)
[2019-06-07] MEDS: METHADONE 10 MG TAB PO (10:03)
[2019-06-07] MEDS: CEFEPIME 1GM/50 ML (PMX) 50 ML IVPB ×2 (10:05→20:17)
[2019-06-07] MEDS: MAGNESIUM SULFATE 2 GM/50 ML 50 ML IVPB (11:16)
[2019-06-08] MEDS: VANCOMYCIN 750 MG (PMX) 250 ML IVPB ×3 (01:35→17:23)
[2019-06-08] MEDS: HEPARIN 5,000 UNIT/1 ML VIAL SC ×3 (05:32→21:44)
[2019-06-08] MEDS: CEFEPIME 1GM/50 ML (PMX) 50 ML IVPB ×2 (08:40→21:41)
[2019-06-08] MEDS: FERROUS FUMARATE (SR) TAB PO ×2 (08:40→21:41)
[2019-06-08] MEDS: POTASSIUM CHLORIDE (SR) 20 MEQ TAB PO (08:40)
[2019-06-08 09:35] LABS: ADD MAN DIFF? NO
[2019-06-08 09:39] LABS: BASOPHIL # 0.1 10^3/ul (0.0-0.1); BASOPHILS % 0.7 % (0.0-2.0); EOSINOPHILS # 0.2 10^3/ul (0.0-0.5); HEMOGLOBIN 9.4 g/dl (12.0-16.0); LYMPHOCYTES # 2.7 10^3/ul (0.8-2.9); LYMPHOCYTES % 28.2 % (15.0-51.0); MEAN CORPUSCULAR HEMOGLOBIN 25.2 pg (29.0-33.0); MEAN CORPUSCULAR HGB CONC 30.3 g/dl (32.0-37.0); MEAN CORPUSCULAR VOLUME 83.1 fl (82.0-101.0); MEAN PLATELET VOLUME 9.4 fl (7.4-10.4); MONOCYTE # 0.7 10^3/ul (0.3-0.9); MONOCYTES % 6.8 % (0.0-11.0); NEUTROPHIL # 5.8 10^3/ul (1.6-7.5); PLATELET COUNT 547 10^3/UL (140-415); RED BLOOD COUNT 3.73 10^6/ul (4.20-5.40); RED CELL DISTRIBUTION WIDTH 18.8 % (11.5-14.5)
[2019-06-08 09:39] LABS: WHITE BLOOD COUNT 9.6 10^3/ul (4.8-10.8)
[2019-06-08] MEDS: METHADONE 10 MG TAB PO (09:51)
[2019-06-08 10:01] LABS: MAGNESIUM 1.7 mg/dl (1.7-2.5)
[2019-06-08 10:01] LABS: PHOSPHORUS 4.6 mg/dl (2.5-4.9)
[2019-06-08 10:02] LABS: ALANINE AMINOTRANSFERASE 65 IU/L (13-69); ALBUMIN 2.8 g/dl (3.3-4.9); ALBUMIN/GLOBULIN RATIO 0.58; ALKALINE PHOSPHATASE 147 IU/L (42-121); ANION GAP 4 (5-13); ASPARTATE AMINO TRANSFERASE 83 IU/L (15-46); BILIRUBIN,INDIRECT 0.2 mg/dl (0-1.1); BILIRUBIN,TOTAL 0.2 mg/dl (0.2-1.3); BLOOD UREA NITROGEN 9 mg/dl (7-20); CALCIUM 8.3 mg/dl (8.4-10.2); CARBON DIOXIDE 29 mmol/L (21-31); CHLORIDE 102 mmol/L (97-110); CREATININE 0.51 mg/dl (0.44-1.00); Estimated GFR > 60 mL/min (>60); GLUCOSE 98 mg/dl (70-220); POTASSIUM 4.6 mmol/L (3.5-5.1); SODIUM 135 mmol/L (135-144); TOTAL PROTEIN 7.6 g/dl (6.1-8.1)
[2019-06-08] MEDS: MAGNESIUM SULFATE 2 GM/50 ML 50 ML IVPB (12:03)
[2019-06-09] MEDS: VANCOMYCIN 750 MG (PMX) 250 ML IVPB ×3 (02:21→18:21)
[2019-06-09] MEDS: HEPARIN 5,000 UNIT/1 ML VIAL SC ×3 (06:34→22:07)
[2019-06-09] MEDS: CEFEPIME 1GM/50 ML (PMX) 50 ML IVPB ×2 (09:15→22:02)
[2019-06-09] MEDS: METHADONE 10 MG TAB PO (09:16)
[2019-06-09] MEDS: POTASSIUM CHLORIDE (SR) 20 MEQ TAB PO (09:17)
[2019-06-09] MEDS: FERROUS FUMARATE (SR) TAB PO ×2 (09:17→22:02)
[2019-06-09 11:34] LABS: PHOSPHORUS 4.6 mg/dl (2.5-4.9)
[2019-06-09 11:34] LABS: MAGNESIUM 1.7 mg/dl (1.7-2.5)
[2019-06-09 11:44] LABS: VANCOMYCIN,TROUGH 9.9 ug/ml (10.0-20.0)
[2019-06-09] MEDS: LORAZEPAM 2 MG INJ IV (22:03)
[2019-06-10] MEDS: VANCOMYCIN 750 MG (PMX) 250 ML IVPB ×3 (01:45→17:27)
[2019-06-10] MEDS: HEPARIN 5,000 UNIT/1 ML VIAL SC ×2 (05:48→14:23)
[2019-06-10] MEDS: POTASSIUM CHLORIDE (SR) 20 MEQ TAB PO (09:03)
[2019-06-10] MEDS: METHADONE 10 MG TAB PO (09:03)
[2019-06-10] MEDS: CEFEPIME 1GM/50 ML (PMX) 50 ML IVPB (09:03)
[2019-06-10] MEDS: FERROUS FUMARATE (SR) TAB PO (09:08)
== END 2019-06-10 20:25 | disposition home or self-care (01) | DRG 603 ==
LOC: TEL 22:18 → E/R 18:18 → 2NE 06-07 18:31
DX: L03.116 Cellulitis of left lower limb (principal); E87.1 Hypo-osmolality and hyponatremia; R65.10 Systemic inflammatory response syndrome (SIRS) of non-infectious origin without acute organ dysfunction; D64.9 Anemia, unspecified; E86.0 Dehydration; F11.90 Opioid use, unspecified, uncomplicated; B19.20 Unspecified viral hepatitis C without hepatic coma; F17.200 Nicotine dependence, unspecified, uncomplicated; I10 Essential (primary) hypertension; E87.6 Hypokalemia
CPT/HCPCS: 36415; 71045; 73590; 73610; 73700; 80053; 80202; 80307; 81001; 82728; 83036; 83540; 83690; 83735; 84100; 84703; 85025; 85610; 85651; 85730; 86140; 87040-91; 90471; 90715; 93005; 93971; 96374; 96375; 97161; 99285-25

== ENCOUNTER 2019-06-17 00:18 | Emergency (ER) | payer OTHER ==
[2019-06-17] MEDS: TRIMETHOPRIM/SULFAMETHOX (DS) TAB PO (02:24)
== END 2019-06-17 02:49 | disposition home or self-care (01) ==
LOC: FTE 00:18
DX: L03.116 Cellulitis of left lower limb (principal)
CPT/HCPCS: 99283; Z7502